=== PATIENT | male | born 1990 | race Caucasian/White ===

== ENCOUNTER 2018-12-07 08:55 | Emergency (ER) | payer SELFPAY ==
[2018-12-07 09:00] VITALS: BP 122/65; PULSE 110; RESP 16; TEMP 36.5; O2SAT 96
--- NOTE | 2018-12-07 09:12 | ED.GENADUL_ITS ---
Discharge Plan Disposition Patient Disposition: HOME Condition: Fair Discharge Details Chief Complaint: Nk/Back Pain Clinical Impression: Muscle spasm Primary Care Provider: None,None ED Provider: Kimberlee Joseph Home Meds and New Rx's Prescriptions: New cyclobenzaprine 10 mg tablet 10 mg PO TID PRN (Reason: muscle spasm) Qty: 10 RF: 0 Discharge Instructions Instructions: Muscle Spasm (ED) Additional Instructions: Encourage hydration. You may use 1,000mg Tylenol every 6 hours and/or 600 mg of ibuprofen every 6 hours as needed for discomfort. You may use Lidoderm patches, these are available [id number]. Please follow package instructions on how to use these. Encouraged gentle stretching and frequent ambulation. Try to avoid heavy lifting as this may increase her discomfort. You may use heat or ice to affected area. You may use the Flexeril as prescribed to help with muscle spasm. Do not drive will take this medication. Will likely make you fatigued. If you develop new or worsening symptoms please seek care urgently once again. Otherwise, her multi care technician should reach out to you regarding establishing primary care physician. Stand Alone Forms: Work Release Medical Decision Making Patient is a 27-year-old male presenting today with chief complaint of left- sided back pain. 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 No sudden onset, reports gradual tightening of the left side of his back. No rash. No fevers/chills. No cough, no SOB. No falls or traumatic inciting incident. Reports that he has chronic back pain at baseline, associates with his heavy lifting with work. Denies radiating pain, no sensation changes, no changes in urinary or bowel habits. On exam, pain is quite lateral, no midline tenderness, no paraspinal tenderness. No limitations of ROM but does have increased pain with rotational movmenets, pa rticularly to the right, and forward flexion. No rash, no palpable defects. Lungs are clear. No neurologic deficits. History and exam most consistent with muscle spasm. He has been using Tylenol for his pain with minimal relief, discussed appropriate dosing of this. Advised he add NSAID, topical patch. Will give Ibuprofen and LIdoderm patch. Will prescribe Flexeril, advised he not take this whie driving. As he drove himself here, will hold off on dosing at this time. Enocuraged ambulation and stretching. Advised on activites to avoid. He does not have a PCP, have asked our care coordinators to arrange f/u in 2 weeks with PCP. Discussed new/worsening symptoms and when to seek care urgently once again. All questions and concerns were addressed, he is in agreement with this plan. HPI General Mode of arrival: ambulatory . Date/Time Provider Initiated Documentation: 12/07/18 09:12 . Limitations to Documentation: no limitations . Information obtained by: patient and RN notes reviewed . History of Present Illness 27 year old M presents to the emergency department with the chief complaint of left sided back pain, described as moderate and similar to prior episodes, with intensity rated at 6. Quality is described as aching, and is localized to the back. Patient reports no radiation. Patient started experiencing this day(s) (5) and it has been constant. Immobilization improves symptom(s), Movement worsens symptoms . Patient notes no other symptoms.. Patient did receive the following treatments prior to arrival, none Related Data Home Medications Medication Instructions Recorded Confirmed cyclobenzaprine 10 mg PO TID PRN #10 tab 12/07/18 Previous Rx's Medication Instructions Recorded cyclobenzaprine 10 mg PO TID PRN #10 tab 12/07/18 Allergies Allergy/AdvReac Type Severity Reaction Status Date / Time morphine AdvReac Unknown Unverified 12/07/18 09:02 General Stated Complaint: Nk/Back Pain RYDER: 4 Review of Systems Constitutional Constitutional: Reports as per HPI, Denies chills, Denies fatigue, Denies fever(s), Denies frequent falls and Denies headache(s) Eyes Eyes: Denies change in vision ENT Ears, Nose, Mouth, and Throat: Denies headache(s) Cardiovascular Cardiovascular: Denies chest pain, Denies dyspnea and Denies dyspnea on exertion Respiratory Respiratory: Denies cough, Denies dyspnea and Denies dyspnea on exertion Gastrointestinal Gastrointestinal: Denies abdominal pain, Denies change in bowel habits and Denies fecal incontinence Genitourinary Genitourinary: Reports as per HPI, Denies urinary hesitancy and Denies urinary incontinence Musculoskeletal Musculoskeletal: Reports as per HPI, Reports back pain, Denies muscle weakness, Denies numbness, Denies radiating pain into limb, Reports stiffness and Denies tingling Integumentary/Breasts Skin/Breast: Reports as per HPI and Denies rash Neurologic Neurologic: Reports as per HPI, Denies frequent falls, Denies headache(s), Denies focal weakness, Denies numbness, Denies radicular pain, Denies sensory deficit, Denies tingling and Denies paresthesias Endocrine Endocrine: Denies fatigue PENDING SALE TO [facility] Social History Smoking/Tobacco Use Status: Current every day Tobacco Type: smokeless tobacco Alcohol Intake: current Alcohol Intake frequency: 3 or more drinks per day Alcohol type: beer Drug use: Current Sobriety Substance use type: marijuana Do you feel safe at home: Yes Do you feel safe in your relationship?: Yes Exam Const General: cooperative, healthy appearing, comfortable, no acute distress, well developed and well groomed Nutritional Appearance: average body habitus and well nourished Orientation: alert and awake Eyes General: appearance normal, both eyes and all related structures Neck Neck: normal visual inspection, full ROM, no lymphadenopathy and no meningeal signs Chest Chest: normal inspection of the chest Resp Effort & Inspection: normal respiratory effort and able to speak in complete sentences Auscultation: clear to auscultation bilaterally, no rales, no rhonchi and no wheezes Cardio Rate: regular rate Rhythm: regular rhythm Heart Sounds: S1 normal and S2 normal Back/Spine/Pelvis Back: no CVA tenderness Cervical Spine: normal cervical lordosis, cervical ROM normal, No cervical spinal tenderness and No step off deformity Thoracic/Lumbar Spine: thoracic and lumbar spine normal to inspection, thoraco- lumbar ROM normal (pain along left side with rotational movements), straight leg raise negative bilaterally, bend over test abnormal (pain with forward flexion. No pain with extension), pain with thoraco-lumbar ROM, No paraspinal tenderness, No thoracic spinal tenderness and No lumbar spinal tenderness Pelvis: no pain with anterior-posterior compression and no pain with lateral compression Sacroiliac joints: bilaterally nontender Back/spine/pelvis image: 1. area of tenderness Skin General skin exam: no rashes or lesions noted Neuro General: alert and awake Cognition: normal cognition Speech: speech normal Gait: normal gait Motor: muscle tone normal throughout, strength 5/5 throughout, no movement abnormalities noted and no fasciculations Sensory Exam: no sensory deficits noted (no saddle paresthesias) Extrem General: normal to inspection, full ROM, normal capillary refill, no joint enlargement, no pedal edema, no calf tenderness and normal gait Psych Appearance: grossly normal and well kempt Mental Status: mental status grossly normal Speech and Movement: speech and movement normal Course Vital Signs Vital signs: Vital Signs Temperature 36.5 C 12/07/18 09:00 Pulse 110 H 12/07/18 09:00 Respiratory Rate 16 12/07/18 09:00 Blood Pressure 122/65 12/07/18 09:00 Pulse Oximetry 96 12/07/18 09:00 Temperature 36.5 C 12/07/18 09:00 Temperature Source Temporal Artery Scan 12/07/18 09:00 Pulse 110 H 12/07/18 09:00 Respiratory Rate 16 12/07/18 09:00 Respiratory Effort 12/07/18 09:00 Blood Pressure 122/65 12/07/18 09:00 Pulse Oximetry 96 12/07/18 09:00 Oxygen Delivery Method Room Air 12/07/18 09:00 Oxygen Flow Rate 0 12/07/18 09:00 Pain Level 6 12/07/18 09:05
[2018-12-07] MEDS: Ibuprofen 600 MG TAB PO (09:33)
[2018-12-07] MEDS: Lidocaine 5% Patch 1 PATCH TP (09:34)
[2018-12-07 09:55] VITALS: BP 122/65; PULSE 110; RESP 16; TEMP 36.5; O2SAT 96
== END 2018-12-07 09:56 | disposition home or self-care (01) ==
PROVIDERS: Emergency Provider Physician Assistant
DX: M62.830 Muscle spasm of back (principal); X50.0XXA Overexertion from strenuous movement or load, initial encounter
CPT/HCPCS: 99283

== ENCOUNTER 2021-08-28 10:47 | Emergency (ER) | payer SELFPAY ==
[2021-08-28 11:12] VITALS: BP 132/90; PULSE 108; RESP 18; TEMP 36.9; O2SAT 98
[2021-08-28 12:15] LABS: Abs Immature Grans 0.02 10^3/uL (0.0-0.06); Absolute Basophil Count 0.07 10^3/uL (0.0-0.2); Absolute Eosinophil Count 0.34 10^3/uL (0.0-0.7); Absolute Lymphocyte Count 2.48 10^3/uL (1.2-3.4); Absolute Monocyte Count 1.01 10^3/uL (0.1-0.8); Basophils % 0.7; Eosinophils % 3.5; HCT 47.5 % (40.0-50.0); HGB 15.9 g/dL (13.5-17.5); Immature Grans % 0.2; Lymphocytes % 25.3; MCH 29.6 pg (27.0-33.0); MCHC 33.5 % (32.0-36.0); MCV 88 fL (80-95); MPV 10.1 fL (8.0-11.0); Monocytes % 10.3; Platelet Count 290 10^3/uL (130-400); RBC 5.38 10^6/uL (4.36-5.78); RDW 11.9 % (11.8-14.1); RDW-SD 38.1 fL; WBC 9.82 10^3/uL (4.4-10.8)
[2021-08-28 12:29] LABS: ALT 32 U/L (16-63); AST 25 U/L (15-37); Albumin 4.8 g/dL (3.4-5.0); Alkaline Phosphatase 141 U/L (46-116); Anion Gap 10.1 mmol/L (3-11); BUN 15 mg/dL (7-18); CO2 25.9 mmol/L (21.0-32.0); CREATININE 1.1 mg/dL (0.70-1.30); Calcium 9.3 mg/dL (8.5-10.1); Chloride 101 mmol/L (98-107); Glucose 87 mg/dL (74-106); Lipase 134 U/L (73-393); Potassium 3.8 mmol/L (3.5-5.1); Sodium 137 mmol/L (136-145); Total Protein 8.6 g/dL (6.4-8.2)
--- NOTE | 2021-08-28 12:56 | ED.GENADUL_ITS ---
Discharge Plan Disposition Patient Disposition: HOME Condition: Stable Discharge Details Clinical Impression: Abdominal wall pain in right upper quadrant, Rib pain on right side Primary Care Provider: None,None ED Provider: Matt Daigle Home Meds and New Rx's Prescriptions: No Action No Known Home Meds Discharge Instructions Instructions: Abdominal Pain (ED), Chest Wall Pain (ED) Additional Instructions: Please take ibuprofen over the counter. Take 600mg by mouth every 6 hours as needed for pain. If pain persists, additional diagnostic testing may be necessary. Please discuss with primary care physician. Please contact your primary care physician to arrange follow-up. Return to the ER immediately for any worsening or new concerning symptoms. Stand Alone Forms: Work Release Medical Decision Making 30yo male here with 2 weeks of right lower rib and ruq abdominal pain that started after heavy lifting. Focally tender rt lower ribs and upper abdomen. Patient experienced vagal episode while having IV placed in hallway. He was maoved to room and IV access established. Symptoms improved quickly and resolved. Bedside POCUS RUQ performed by me: no pericholecystic fluid, no stone, nl gallbladder wall thickness, neg sonographic preston. Labs reviewed: no leukocytosis, nl LFTs, nl lipase. Suspect musculoskeletal etiology. Plan for discharge with work note for light activity and patient was instructed to avoid activities that worsen pain. Disposition decision was made weighing the risks and benefits of hospitalization versus outpatient treatment, the risk for further decompensation, and the patient's wishes. The patient was stable and requested discharge. Prior to discharge, my usual a nd customary return precautions were reviewed with the patient - this included follow-up instructions and reason to return to the emergency department if condition worsens, does not improve as expected, or other new concerns arise. Lab Data Lab results reviewed: Yes I reviewed the patient's lab results. Labs: Laboratory Tests Range/Units 08/28/21 08/28/21 12:08 12:08 WBC (4.4-10.8) 10^3/uL 9.82 RBC (4.36-5.78) 10^6/uL 5.38 Hgb (13.5-17.5) g/dL 15.9 Hct (40.0-50.0) % 47.5 MCV (80-95) fL 88 MCH (27.0-33.0) pg 29.6 MCHC (32.0-36.0) % 33.5 RDW (11.8-14.1) % 11.9 Plt Count (130-400) 10^3/uL 290 MPV (8.0-11.0) fL 10.1 Immature Gran % 0.2 Neutrophils % 60.0 Lymphocytes % 25.3 Monocytes % 10.3 Eosinophils % 3.5 Basophils % 0.7 Nucleated RBC % (0.0-0.3) % 0.0 Absolute Neutrophils (1.2-6.7) 10^3/uL 5.90 Absolute Lymphocytes (1.2-3.4) 10^3/uL 2.48 Absolute Monocytes (0.1-0.8) 10^3/uL 1.01 H Absolute Eosinophils (0.0-0.7) 10^3/uL 0.34 Absolute Basophils (0.0-0.2) 10^3/uL 0.07 Sodium (136-145) mmol/L 137 Potassium (3.5-5.1) mmol/L 3.8 Chloride (98-107) mmol/L 101 Carbon Dioxide (21.0-32.0) mmol/L 25.9 Anion Gap (3-11) mmol/L 10.1 BUN (7-18) mg/dL 15 Creatinine (0.70-1.30) mg/dL 1.1 Estimated GFR/1.73 m2 (mL/min/1.73m2) >= 60.00 Glucose (74-106) mg/dL 87 Calcium (8.5-10.1) mg/dL 9.3 Total Bilirubin (0.2-1.0) mg/dL 1.0 AST (15-37) U/L 25 ALT (16-63) U/L 32 Alkaline Phosphatase (46-116) U/L 141 H Total Protein (6.4-8.2) g/dL 8.6 H Albumin (3.4-5.0) g/dL 4.8 Lipase (73-393) U/L 134 HPI General Mode of arrival: ambulatory . Date/Time Provider Initiated Documentation: 08/28/21 11:06 . Limitations to Documentation: no limitations . Information obtained by: patient . HPI Narrative: 30-year-old male presents with chief complaint of right upper abdominal pain. Patient notes pain for the past 2 weeks. 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 He notes initially did not have much pain but the following day he developed pain in his right posterior ribs that radiates to anterior lower right ribs and right upper abdomen. Pain is mild to moderate and worse on palpation. He has no associated anorexia or nausea or vomiting. Pain is not worse postprandially. Related Data Home Medications Medication Instructions Recorded Confirmed Unknown [No Known Home Meds] 08/28/21 08/28/21 Allergies Allergy/AdvReac Type Severity Reaction Status Date / Time morphine AdvReac Unknown Unverified 08/28/21 12:20 General Stated Complaint: Abd Prob RYDER: 3 Review of Systems All systems reviewed & are unremarkable except as noted in HPI and below Constitutional Constitutional: Denies fever(s) and Denies poor appetite Respiratory Respiratory: Denies cough Gastrointestinal Gastrointestinal: Reports as per HPI, Denies nausea and Denies vomiting Musculoskeletal Musculoskeletal: Reports as per HPI PFSH All Active Problems Abdominal wall pain in right upper quadrant (Acute) Rib pain on right side (Acute) Social History Smoking/Tobacco Use Status: Current every day Tobacco Type: smokeless tobacco Smoking risk assessment performed?: Yes Alcohol Intake: current Alcohol Intake frequency: 3 or more drinks per day Alcohol type: beer Drug use: Current Sobriety Substance use type: marijuana Do you feel safe at home: Yes Do you feel safe in your relationship?: Yes Exam Const General: cooperative and no acute distress HENMT Mouth: moist mucous membranes Eyes Sclera: normal sclerae Chest Chest: localized rib tenderness with anteroposterior compression (rt lower ribs) Resp Auscultation: clear to auscultation bilaterally, no rales, no rhonchi and no wheezes Cardio Rate: regular rate and not tachycardic Rhythm: regular rhythm GI Palpation: soft, not firm, no guarding, no masses and not rigid Skin General skin exam: no rashes or lesions noted Neuro General: patient alert, patient awake and tone normal Course Vital Signs Vital signs: Vital Signs Temperature 36.9 C 08/28/21 11:12 Pulse 108 H 08/28/21 11:12 Respiratory Rate 18 08/28/21 11:12 Blood Pressure 132/90 08/28/21 11:12 Pulse Oximetry 98 08/28/21 11:12 Temperature 36.9 C 08/28/21 11:12 Temperature Source Temporal Artery Scan 08/28/21 11:12 Pulse 108 H 08/28/21 11:12 Respiratory Rate 18 08/28/21 11:12 Respiratory Effort Non-Labored 08/28/21 12:13 Blood Pressure 132/90 08/28/21 11:12 Blood Pressure Position Sitting 08/28/21 11:12 Pulse Oximetry 98 08/28/21 11:12 Oxygen Delivery Method Room Air 08/28/21 11:12 Oxygen Flow Rate 0 08/28/21 11:12 Pain Level 2 08/28/21 12:13 Lab/Test Results Lab/Test Results: Laboratory Tests Range/Units 08/28/21 08/28/21 12:08 12:08 WBC (4.4-10.8) 10^3/uL 9.82 RBC (4.36-5.78) 10^6/uL 5.38 Hgb (13.5-17.5) g/dL 15.9 Hct (40.0-50.0) % 47.5 MCV (80-95) fL 88 MCH (27.0-33.0) pg 29.6 MCHC (32.0-36.0) % 33.5 RDW (11.8-14.1) % 11.9 Plt Count (130-400) 10^3/uL 290 MPV (8.0-11.0) fL 10.1 Immature Gran % 0.2 Neutrophils % 60.0 Lymphocytes % 25.3 Monocytes % 10.3 Eosinophils % 3.5 Basophils % 0.7 Nucleated RBC % (0.0-0.3) % 0.0 Absolute Neutrophils (1.2-6.7) 10^3/uL 5.90 Absolute Lymphocytes (1.2-3.4) 10^3/uL 2.48 Absolute Monocytes (0.1-0.8) 10^3/uL 1.01 H Absolute Eosinophils (0.0-0.7) 10^3/uL 0.34 Absolute Basophils (0.0-0.2) 10^3/uL 0.07 Sodium (136-145) mmol/L 137 Potassium (3.5-5.1) mmol/L 3.8 Chloride (98-107) mmol/L 101 Carbon Dioxide (21.0-32.0) mmol/L 25.9 Anion Gap (3-11) mmol/L 10.1 BUN (7-18) mg/dL 15 Creatinine (0.70-1.30) mg/dL 1.1 Estimated GFR/1.73 m2 (mL/min/1.73m2) >= 60.00 Glucose (74-106) mg/dL 87 Calcium (8.5-10.1) mg/dL 9.3 Total Bilirubin (0.2-1.0) mg/dL 1.0 AST (15-37) U/L 25 ALT (16-63) U/L 32 Alkaline Phosphatase (46-116) U/L 141 H Total Protein (6.4-8.2) g/dL 8.6 H Albumin (3.4-5.0) g/dL 4.8 Lipase (73-393) U/L 134 PAWSS Have you Been Recently Intoxicated or Drunk Within the Last 30 days?: No Have you Ever Experienced Previous Episodes of Alcohol Withdrawal?: No Have you ever Experienced Withdrawal Seizures?: No Have you ever Experienced Delirium Tremens(DT)s?: No Have you ever undergone Alcohol Rehabilitation Treatment (i.e, inpt ot outpatient treatment programs)?: No Have you ever Experienced Blackouts?: No Have you ever Combined Alcohol with other Downers within the last 90 days?: No Have you ever Combined Alcohol with any other Substance of Abuse during the last 90 days?: No Result: 0
--- NOTE | 2021-08-28 13:01 | NUR.NOTE ---
Nursing Note: Referral given to Care Managment to establish care with routine follow up.
[2021-08-28 13:12] VITALS: BP 118/72; PULSE 68; TEMP 36.5; O2SAT 98
--- NOTE | 2021-08-29 13:57 | PDOC.ERCMACT ---
- If Service Date Differs Date of service: 08/29/21 Time of Service: 13:57 Care Management Activity Note Garret is seen in the ED for abdominal pain. At the request of ED provider, JENNIFER coordinates a referral to Stormy King MD, of [facility], on-call provider, to assist Garret in obtaining a follow up appointment and in establishing care with a PCP.
== END 2021-08-28 13:27 | disposition home or self-care (01) ==
PROVIDERS: Physician Assistant; Emergency Provider Student in an Organized Health Care Education/Training Program
DX: G89.11 Acute pain due to trauma (principal); R10.11 Right upper quadrant pain; R07.81 Pleurodynia; F17.290 Nicotine dependence, other tobacco product, uncomplicated; X50.0XXA Overexertion from strenuous movement or load, initial encounter
CPT/HCPCS: 80053; 83690; 99284; 85025; 99282